=== PATIENT | male | born 1990 | race Caucasian/White ===

== ENCOUNTER 2019-01-30 19:01 | Emergency (ER) | payer SELFPAY ==
[~2019-01-30] VITALS: Ht 177.8 cm; Wt 72.6 kg
[2019-01-30 19:04] VITALS: Ht 177.8 cm; Wt 72.6 kg
[2019-01-30 19:27] LABS: BASOPHILS 0.4 % (0-2); EOSINOPHILS 1.9 % (0-7); HEMATOCRIT 47.4 % (42.0-54.0); HEMOGLOBIN 15.7 g/dL (13.5-17.5); IMMATURE GRANULOCYTES 0.7 % (0-5); LYMPHOCYTES 31.9 % (15-50); MCH 28.5 pg (26.0-34.0); MCHC 33.1 g/dL (31.0-37.0); MEAN PLATELET VOLUME 10.5 fL (7.4-10.4); MONOCYTES 10.5 % (2-11); NEUTROPHILS 54.6 % (40-80); PLATELET COUNT 231 10x3/uL (130-400); RBC 5.51 10x6/uL (4.20-6.10); RDW 13.6 % (11.5-14.5); WBC 7.3 10x3/uL (4.8-10.8)
[2019-01-30 19:42] LABS: ALBUMIN 3.3 g/dL (3.4-5.0); ALKALINE PHOSPHATASE 87 U/L (46-116); ALT (SGPT) 48 U/L (10-68); BILIRUBIN - TOTAL 0.36 mg/dL (0.2-1.3); CALC OSMOLALITY 281 mosm/kg (275-300); CALCIUM 8.6 mg/dL (8.5-10.1); CHLORIDE - SERUM 107 mmol/L (98-107); CREATININE - SERUM 0.8 mg/dL (0.6-1.3); GLUCOSE 77 mg/dL (74-106); PROTEIN - SERUM 7.4 g/dL (6.4-8.2); SODIUM 142 mmol/L (136-145); UREA NITROGEN 12 mg/dL (7-18); eGFR NON AFRICAN AMERICAN > 90 mL/min (90-120)
[2019-01-30] MEDS ORDERED: KEFLEX500 MG PO (20:44)
[2019-01-30] MEDS ORDERED: HYDROCODON-ACE1 EAC2 PO (20:44)
[2019-01-30 21:17] VITALS: BP 131/89
== END 2019-01-30 21:17 | disposition home or self-care (01) ==
LOC: D.ER 19:01
PROVIDERS: Emergency Medicine
DX: S31.113A Laceration without foreign body of abdominal wall, right lower quadrant without penetration into peritoneal cavity, initial encounter (principal); W26.8XXA Contact with other sharp object(s), not elsewhere classified, initial encounter; Y93.89 Activity, other specified; Y92.019 Unspecified place in single-family (private) house as the place of occurrence of the external cause; S01.81XA Laceration without foreign body of other part of head, initial encounter

== ENCOUNTER 2021-02-23 12:59 | Inpatient (IN) | payer MEDICAID ==
[~2021-02-23] VITALS: Ht 177.8 cm; Wt 79.5 kg
[~2021-02-23 12:59] MED LIST: HYDROCODON-ACE1 EAC2 PO; KEFLEX500 MG PO
[2021-02-23 13:41] LABS: BASOPHILS 0.2 % (0-2); HEMATOCRIT 50.4 % (42.0-54.0); HEMOGLOBIN 16.2 g/dL (13.5-17.5); IMMATURE GRANULOCYTES 2.2 % (0-5); LYMPHOCYTE ABS# 1.42 10x3/uL (1.32-3.57); LYMPHOCYTES 27.8 % (15-50); MCH 26.9 pg (26.0-34.0); MCHC 32.1 g/dL (31.0-37.0); MCV 83.7 fL (80.0-100.0); MEAN PLATELET VOLUME 10.8 fL (7.4-10.4); MONOCYTES 8.4 % (2-11); NEUTROPHIL ABS# 2.72 10x3/uL (1.78-5.38); NEUTROPHILS 53.4 % (40-80); RBC 6.02 10x6/uL (4.20-6.10); RDW 15.9 % (11.5-14.5); WBC 5.1 10x3/uL (4.8-10.8)
[2021-02-23 13:47] LABS: BILIRUBIN 2+ (NEGATIVE); KETONE NEGATIVE (NEGATIVE); NITRITE NEGATIVE (NEGATIVE); UROBILINOGEN NORMAL mg/dL (< 2)
[2021-02-23 13:49] LABS: PLATELET COUNT 167 10x3/uL (130-400)
[2021-02-23 13:50] LABS: UDS - AMPHET POSITIVE QUAL (NEGATIVE); UDS - BARB NEGATIVE QUAL (NEGATIVE); UDS - BENZO NEGATIVE QUAL (NEGATIVE); UDS - COCAINE NEGATIVE QUAL (NEGATIVE); UDS - OPIATE NEGATIVE QUAL (NEGATIVE); UDS - PCP NEGATIVE QUAL (NEGATIVE); UDS - THC NEGATIVE QUAL (NEGATIVE)
[2021-02-23 13:53] LABS: CALC OSMOLALITY 276 mosm/kg (275-300); CARBON DIOXIDE 33.4 mmol/L (21.0-32.0); CHLORIDE - SERUM 101 mmol/L (98-107); CREATININE - SERUM 0.9 mg/dL (0.6-1.3); GLUCOSE 92 mg/dL (74-106); POTASSIUM - SERUM 3.9 mmol/L (3.5-5.1); SODIUM 140 mmol/L (136-145); UREA NITROGEN 6 mg/dL (7-18); eGFR NON AFRICAN AMERICAN > 90 mL/min (90-120)
[2021-02-23 14:03] LABS: ALBUMIN 3.4 g/dL (3.4-5.0); ALKALINE PHOSPHATASE 358 U/L (30-120); BILIRUBIN - TOTAL 6.62 mg/dL (0.2-1.3); LIPASE 82 U/L (73-393); PROTEIN - SERUM 7.9 g/dL (6.4-8.2)
[2021-02-23 14:04] LABS: ALT (SGPT) 2902 U/L (10-68)
[2021-02-23 15:31] LABS: APTT 34.3 SECONDS (22.8-39.4); INR 1.02 (0.85-1.17); PROTIME 12.4 SECONDS (11.6-15.0)
[2021-02-23 18:24] VITALS: BP 117/81; Ht 177.8 cm; Wt 79.5 kg
--- NOTE | 2021-02-23 19:32 | NUR ---
PATIENT RESTING IN BED WITH EYES CLOSED AND NO S/S OF DISTRESS. GUEST AT BEDSIDE DENIES NEEDS.
[2021-02-23 20:00] VITALS: BP 115/76
--- NOTE | 2021-02-23 20:26 | NUR ---
ADMINISTERED MEDS PER ORDERS. PATIENT BEVERLY WELL. ENCOURAGED TO CALL WITH NEEDS.
--- NOTE | 2021-02-23 20:35 | NUR ---
MARINA OLIVER APN IN REGARDS TO PATIENT REQUEST FOR SLEEP MEDICINE
[2021-02-24] VITALS: BP 167/91
[2021-02-24 04:00] VITALS: BP 115/75
[2021-02-24 05:11] LABS: BASOPHILS 0.2 % (0-2); EOSINOPHILS 8.2 % (0-7); HEMATOCRIT 41.4 % (42.0-54.0); HEMOGLOBIN 13.1 g/dL (13.5-17.5); LYMPHOCYTE ABS# 1.03 10x3/uL (1.32-3.57); LYMPHOCYTES 22.8 % (15-50); MCH 26.5 pg (26.0-34.0); MCHC 31.6 g/dL (31.0-37.0); MCV 83.6 fL (80.0-100.0); MEAN PLATELET VOLUME 11.4 fL (7.4-10.4); MONOCYTES 12.9 % (2-11); NEUTROPHIL ABS# 2.43 10x3/uL (1.78-5.38); NEUTROPHILS 53.9 % (40-80); PLATELET COUNT 197 10x3/uL (130-400); RBC 4.95 10x6/uL (4.20-6.10); RDW 16.2 % (11.5-14.5); WBC 4.5 10x3/uL (4.8-10.8)
[2021-02-24 05:31] LABS: INR 1.07 (0.85-1.17); PROTIME 12.9 SECONDS (11.6-15.0)
[2021-02-24 05:32] LABS: ALBUMIN 2.4 g/dL (3.4-5.0); ALKALINE PHOSPHATASE 281 U/L (30-120); ALT (SGPT) 1851 U/L (10-68); APTT 32.2 SECONDS (22.8-39.4); BILIRUBIN - TOTAL 4.58 mg/dL (0.2-1.3); CALC OSMOLALITY 276 mosm/kg (275-300); CARBON DIOXIDE 27.6 mmol/L (21.0-32.0); CHLORIDE - SERUM 106 mmol/L (98-107); CHOL - HDL RATIO 19.7 ratio (2.3-4.9); CHOLESTEROL, TOTAL 138 mg/dL (0-200); CREATININE - SERUM 0.8 mg/dL (0.6-1.3); GLUCOSE 109 mg/dL (74-106); HDL CHOLESTEROL 7 mg/dL (32-96); LDL CHOLESTEROL 71 mg/dL (0-100); LDL-HDL RATIO 10.1 ratio (1.5-3.5); PHOSPHOROUS 3.3 mg/dL (2.5-4.9); POTASSIUM - SERUM 3.9 mmol/L (3.5-5.1); PROTEIN - SERUM 6.2 g/dL (6.4-8.2); SODIUM 140 mmol/L (136-145); TRIGLYCERIDE 303 mg/dL (30-200); UREA NITROGEN 5 mg/dL (7-18); eGFR NON AFRICAN AMERICAN > 90 mL/min (90-120)
[2021-02-24 08:04] VITALS: BP 102/60
[2021-02-24 11:35] VITALS: BP 119/79
--- NOTE | 2021-02-24 14:07 | NUR ---
DISCHARGE INSTRUCTIONS REVIEWED WITH PT AND SPOUSE, ALL QUESTIONS ANSWERED, IV REMOVED, TIP INTACT, PT WALKED OUT WITH STABLE GAIT IN STABLE CONDITION, NO SIGNS OF DISTRESS
--- NOTE | 2021-02-24 17:21 | MORECARE ---
CASE MANAGEMENT DISCHARGE SUMMARY PATIENT: JUAN MNUIZ UNIT: [id number] ADM DATE: 02/23/21 AGE: 30 : 88 SEX: M ROOM/BED: D.2238 AUTHOR: ALMA,DOC PHYSICIAN: REFERRING PHYSICIAN: NELIA GUTIÉRREZ MD DATE OF SERVICE: 02/24/21 Case Management Discharge Planning Summary CT Patient Name: JUAN MUNIZ Attending MD : ROSSANA ALTAMIRANO Medical Record: [id number] Encounter : [id number] Facility : [address] [place] [address] Medical Admission Date : 118:04 Center Discharge Date : 02/24/[address] [place] [address] Date of : DC Plan ID : [id number] Age/Sex/Martia : 30/ M/M Printed on : 02/24/21 17:20 CT DCP Review Details Anticipated D/C: 02/24/2021 Expected LOS : 1 Case Status : INITIATED - Initial Reviewe: [id number] - Isaías Lyle Initial Review: 02/23/2021 Planned Disposi: 01 - Home or Self Care (Routine Discharge) Final Discharge: - Final Reviewer : : Final Review : Comments CT Entered Date Type Reviewer 02/24/21 17:15 CT Discharge Planning Isaías Lyle Comment HOME, no needs. CM met with patient to complete DC plan and to evaluate needs. Patient lives independently at home alone with support. Patient stated that his home is safe and has electricity and running water. Patient stated that the home has 2 steps to enter and he is able to manage the steps without difficulty. Patient stated that he has no problems paying for medications and he fills his medications at [facility] in [place]. Patient stated that his primary care PEOPLESOFT ANALYST is Samia Mar. At discharge, the patient plans to return home and feels this is a safe discharge. CM discussed availability of home health, rehab services, and medical equipment. Patient declined HHS, SNF, IPR, and DME. Patient voiced no other needs at this time and is satisfied with DC plan. Signed form also left with the patient. CM will continue to follow and will assist as needed with dc plans/needs. DCP Focus Questions & Answers DCP Evaluation Patient and/or caregiver agree upon recommended Yes discharge plan? Family / Caregiver's ability to cope with chronic a. Adequate (ability to meet patient's illness: medical needs, ensures patient attends medical appts.) Patient's current cognitive status: *Oriented to person, place, situation, time and present Patient's ability to cope with chronic illness d. No chronic illness Patient gives permission to discuss discharge FATHER SEGAL, plans with: (name, relationship and number) Does the patient have the ability to pay for or Yes attain post discharge needs / services? Functional screen assessment: No issues identified Functional screen assessment: Basic needs can adequately be met by self Family / Caregiver's ability to cope with chronic a. Adequate (ability to meet patient's illness: medical needs, ensures patient attends medical appts.) Physical Status: Independent with ADL's Equipment needed for post hospitalization: None Is there a likelihood that the patient will No require additional services to return to the preadmission environment? Living Arrangements: Home Alone with Support Patient with capacity for self-care or can be Yes cared for in same environment as prior to hospitalization? Baseline cognitive status: *Oriented to person, place, situation, time and present Physical environment modification needed / No anticipated for discharge: Medication Management: Patient states can read and understand medication labels Medication Management: Patient states can afford medications [facility] in [place], [place] Does Patient have transportation to get home and Yes to follow-up medical appointments when discharged from the hospital? Would patient like to participate in any Care Not applicable Coordination programs (if applicable): Does the patient have electricity at home? Yes Does the patient have running water in their Yes house? Equipment in use: None Mental health screen: No mental health history DCP Re-evaluation Would patient like to participate in any Care Not applicable Coordination programs (if applicable): [facility] JUAN MUNIZ MR#: [id number] /Age/Sex/Ivauld7-Zsn-04 /30/M /M Attending Physician Name: ROSLYN GUTIÉRREZ [id number] Patient Account:[id number] [facility] Page -1 of 1 All edits/amendments must be made on the electronic document DICTATION DATE: 02/24/211719 TRIPE SCRAPER: HUBERT 02/24/211719 RPT#: [id number] DC DATE:02/24/21 STATUS: DIS IN [facility] [address] [place] [address] END OF REPORT
--- NOTE | 2021-02-24 19:34 | MORECARE ---
CASE MANAGEMENT DISCHARGE SUMMARY PATIENT: JUAN MUNIZ UNIT: [id number] ADM DATE: 02/23/21 AGE: 30 : 88 SEX: M ROOM/BED: D.2238 AUTHOR: ALMA,DOC PHYSICIAN: REFERRING PHYSICIAN: NELIA GUTIÉRREZ MD DATE OF SERVICE: 02/24/21 Case Management Discharge Planning Summary CT Patient Name: JUAN MUNIZ Attending MD : ROSSANA ALTAMIRANO Medical Record: [id number] Encounter : [id number] Facility : [address] [place] [address] Medical Admission Date : 118:04 Center Discharge Date : 02/24/[address] [place] [address] Date of : DC Plan ID : [id number] Age/Sex/Martia : 30/ M/M Printed on : 02/24/21 19:33 CT DCP Review Details Anticipated D/C: 02/24/2021 Expected LOS : 1 Case Status : INITIATED - Initial Reviewe: [id number] - Isaías Lyle Initial Review: 02/23/2021 Planned Disposi: 01 - Home or Self Care (Routine Discharge) Final Discharge: - Final Reviewer : : Final Review : Comments CT Entered Date Type Reviewer 02/24/21 17:15 CT Discharge Planning Isaías Lyle Comment HOME, no needs. CM met with patient to complete DC plan and to evaluate needs. Patient lives independently at home alone with support. Patient stated that his home is safe and has electricity and running water. Patient stated that the home has 2 steps to enter and he is able to manage the steps without difficulty. Patient stated that he has no problems paying for medications and he fills his medications at [facility] in [place]. Patient stated that his primary care PROJECT MANAGER ENTERTAINMENT [employer] MEDIA is Samia Mar. At discharge, the patient plans to return home and feels this is a safe discharge. CM discussed availability of home health, rehab services, and medical equipment. Patient declined HHS, SNF, IPR, and DME. Patient voiced no other needs at this time and is satisfied with DC plan. Signed form also left with the patient. CM will continue to follow and will assist as needed with dc plans/needs. DCP Focus Questions & Answers DCP Evaluation Patient and/or caregiver agree upon recommended Yes discharge plan? Family / Caregiver's ability to cope with chronic a. Adequate (ability to meet patient's illness: medical needs, ensures patient attends medical appts.) Patient's current cognitive status: *Oriented to person, place, situation, time and present Patient's ability to cope with chronic illness d. No chronic illness Patient gives permission to discuss discharge FATHER SEGAL, plans with: (name, relationship and number) Does the patient have the ability to pay for or Yes attain post discharge needs / services? Functional screen assessment: No issues identified Functional screen assessment: Basic needs can adequately be met by self Family / Caregiver's ability to cope with chronic a. Adequate (ability to meet patient's illness: medical needs, ensures patient attends medical appts.) Physical Status: Independent with ADL's Equipment needed for post hospitalization: None Is there a likelihood that the patient will No require additional services to return to the preadmission environment? Living Arrangements: Home Alone with Support Patient with capacity for self-care or can be Yes cared for in same environment as prior to hospitalization? Baseline cognitive status: *Oriented to person, place, situation, time and present Physical environment modification needed / No anticipated for discharge: Medication Management: Patient states can read and understand medication labels Medication Management: Patient states can afford medications [facility]acy name([facility] in [place], [place] Does Patient have transportation to get home and Yes to follow-up medical appointments when discharged from the hospital? Would patient like to participate in any Care Not applicable Coordination programs (if applicable): Does the patient have electricity at home? Yes Does the patient have running water in their Yes house? Equipment in use: None Mental health screen: No mental health history DCP Re-evaluation Would patient like to participate in any Care Not applicable Coordination programs (if applicable): [facility] JUAN MUNIZ MR#: [id number] /Age/Sex/Lxwjca8-Tkn-13 /30/M /M Attending Physician Name: ROSLYN GUTIÉRREZ [id number] Patient Account:[id number] [facility] Page -1 of 1 All edits/amendments must be made on the electronic document DICTATION DATE: 02/24/211932 VISUAL MERCHANDISING MANAGER: HUBERT 02/24/211932 RPT#: [id number] DC DATE:02/24/21 STATUS: DIS IN [facility] [address] [facility] [place] [address] END OF REPORT
== END 2021-02-24 14:11 | disposition home or self-care (01) | DRG 443 ==
LOC: D.ER 12:59 → D.MS 16:16 → OBSVTIME 16:16 → D.MS 18:04
PROVIDERS: Family Medicine; Internal Medicine Gastroenterology; ADMIT Emergency Medicine; ATTEND Emergency Medicine
DX: B15.9 Hepatitis A without hepatic coma (principal); R74.01 Elevation of levels of liver transaminase levels; E80.6 Other disorders of bilirubin metabolism